=== PATIENT | male | born 1955 | race African-American/Black ===

== ENCOUNTER 2017-09-20 14:23 | Inpatient (IN) | payer SELFPAY ==
[2017-09-20] MEDS: IV NORMAL SALINE 1000ML BAG 1,000 ML IV (14:49)
[2017-09-20] MEDS: ASPIRIN CHEWABLE 81 MG TABLET. PO (15:00)
[2017-09-20] MEDS: ONDANSETRON PF 4 MG/2 ML VIAL. IV (15:00)
[2017-09-20 15:04] LABS: ADD MAN DIFF? NO
[2017-09-20 15:08] LABS: BASO # 0.1 x10^3/uL (0.0-0.2); BASO % 1 % (0-3); EOS # 0.1 x10^3/uL (0.0-0.7); EOS % 1 % (0-3); HEMOGLOBIN 12.8 g/dL (13.0-17.5); LYMPH # 2.5 x10^3/uL (1.0-4.8); LYMPH % 21 % (24-48); MEAN CORPUSCULAR HEMOGLOBIN 24 pg (25-35); MEAN CORPUSCULAR HGB CONC 32 g/dL (31-37); MEAN CORPUSCULAR VOLUME 74 fL (79-100); MONO # 1.1 x10^3/uL (0.0-1.1); MONO % 9 % (0-9); NEUT # 8.1 x10^3uL (1.8-7.7); NEUT % 68 % (31-73); PLATELET COUNT 288 x10^3/uL (140-400); RED BLOOD COUNT 5.42 x10^6/uL (4.30-5.70); RED CELL DISTRIBUTION WIDTH 15.4 % (11.5-14.5); WHITE BLOOD COUNT 11.8 x10^3/uL (4.0-11.0)
[2017-09-20] MEDS: fentaNYL PF VIAL 100 MCG/2 ML VIAL IV (15:11)
[2017-09-20 15:17] LABS: PROTHROMBIN TIME PATIENT 12.8 SEC (11.7-14.0)
[2017-09-20 15:27] LABS: ANION GAP 11 (6-14); BLOOD UREA NITROGEN 14 mg/dL (8-26); BUN/CREATININE RATIO 16 (6-20); CALCIUM 9.2 mg/dL (8.5-10.1); CARBON DIOXIDE 26 mmol/L (21-32); CHLORIDE 105 mmol/L (98-107); CREATININE 0.9 mg/dL (0.7-1.3); GFR 103.8; GLUCOSE 105 mg/dL (70-99); POTASSIUM 4.1 mmol/L (3.5-5.1); SODIUM 142 mmol/L (136-145)
[2017-09-20 15:33] LABS: ALBUMIN 3.7 g/dL (3.4-5.0); ALK PHOS 84 U/L (46-116); ALT (SGPT) 22 U/L (16-63); AST (SGOT) 13 U/L (15-37); TOTAL BILIRUBIN 0.3 mg/dL (0.2-1.0); TOTAL PROTEIN 7.4 g/dL (6.4-8.2)
[2017-09-20 15:35] LABS: TROPONINI < 0.017 ng/mL (0.000-0.055)
[2017-09-20 15:41] LABS: NT-PRO BNP 15 pg/mL (0-124)
[2017-09-20 15:41] LABS: CREATINE KINASE 77 U/L (39-308)
[2017-09-20 15:42] LABS: CKMB MASS < 0.5 ng/mL (0.0-3.6)
[2017-09-20] MEDS ORDERED: ACETAMINOPHEN 325 MG TABLET. PO (16:45)
[2017-09-20] MEDS ORDERED: ONDANSETRON PF 4 MG/2 ML VIAL. IV (16:45)
[2017-09-20] MEDS ORDERED: fentaNYL PF VIAL 100 MCG/2 ML VIAL IV (16:45)
[2017-09-20 19:36] LABS: TROPONINI < 0.017 ng/mL (0.000-0.055)
[2017-09-20 23:33] LABS: TROPONINI < 0.017 ng/mL (0.000-0.055)
[2017-09-21] MEDS: IV NORMAL SALINE 1000ML BAG 1,000 ML IV ×3 (00:03→08:33)
[2017-09-21 05:55] LABS: ADD MAN DIFF? NO
[2017-09-21 06:02] LABS: BASO % 0 % (0-3); EOS # 0.2 x10^3/uL (0.0-0.7); EOS % 1 % (0-3); HEMOGLOBIN 13.2 g/dL (13.0-17.5); LYMPH # 2.9 x10^3/uL (1.0-4.8); LYMPH % 25 % (24-48); MEAN CORPUSCULAR HEMOGLOBIN 23 pg (25-35); MEAN CORPUSCULAR HGB CONC 32 g/dL (31-37); MEAN CORPUSCULAR VOLUME 74 fL (79-100); MONO % 9 % (0-9); NEUT # 7.6 x10^3uL (1.8-7.7); NEUT % 65 % (31-73); PLATELET COUNT 278 x10^3/uL (140-400); RED BLOOD COUNT 5.67 x10^6/uL (4.30-5.70); RED CELL DISTRIBUTION WIDTH 14.9 % (11.5-14.5); WHITE BLOOD COUNT 11.8 x10^3/uL (4.0-11.0)
[2017-09-21 06:16] LABS: ANION GAP 10 (6-14); BLOOD UREA NITROGEN 10 mg/dL (8-26); CALCIUM 9.1 mg/dL (8.5-10.1); CARBON DIOXIDE 28 mmol/L (21-32); CHLORIDE 105 mmol/L (98-107); CREATININE 0.9 mg/dL (0.7-1.3); GFR 103.8; GLUCOSE 96 mg/dL (70-99); SODIUM 143 mmol/L (136-145)
[2017-09-21] MEDS: amLODIPine BESYLATE 5 MG TABLET PO (09:00)
[2017-09-21] MEDS ORDERED: ALBUTEROL SULFATE 2.5 MG/3 ML NEBU. NEB (09:00)
[2017-09-21] MEDS ORDERED: DEXTROSE 50% 25 GM / 50ML DISP.SYRIN. IV (09:00)
[2017-09-21] MEDS ORDERED: ONDANSETRON PF 4 MG/2 ML VIAL. IV (09:00)
[2017-09-21] MEDS ORDERED: MORPHINE SULFATE 4 MG/ML DISP.SYRIN. IV (09:00)
[2017-09-21 09:42] LABS: CHOLESTEROL 144 mg/dL (0-200); HDLC 49 mg/dL (40-60); LDLC 79 mg/dL (0-100); NON-HDL CHOLESTEROL 95 mg/dL (0-129); TRIGLYCERIDES 81 mg/dL (0-150); VLDLC 16 mg/dL (0-40)
[2017-09-21 09:46] LABS: CHOLESTEROL/HDL RATIO 2.9
[2017-09-21] MEDS: ALBUTEROL SULFATE 2.5 MG/3 ML NEBU. NEB ×3 (11:09→19:49)
[2017-09-21] MEDS: INSULIN ASPART 300 UNITS/3 ML INSULN.PEN SQ ×2 (12:00→17:41)
[2017-09-21 12:48] LABS: BILIRUBIN,URINE NEGATIVE (NEG); CLARITY,URINE CLEAR; COLOR,URINE YELLOW; GLUCOSE,URINE NEGATIVE (NEG); NITRITE,URINE NEGATIVE (NEG); PH,URINE 5.5; PROTEIN,URINE NEGATIVE (NEG-TRACE); UROBILINOGEN,URINE 0.2 mg/dL (0.2 mg/dL)
[2017-09-21 13:21] LABS: BACTERIA,URINE 0 /HPF (0-FEW); RBC,URINE OCC /HPF (0-2); WBC,URINE 0 /HPF (0-4)
[2017-09-21 13:22] LABS: HYALINE CASTS, URINE MODERATE /HPF
[2017-09-21 13:25] LABS: BARBITURATES NEG (NEG); BENZODIAZEPINES NEG (NEG); CANNABINOIDS POS (NEG); COCAINE NEG (NEG); METHADONE NEG (NEG); OPIATES NEG (NEG); PHENCYCLIDINE NEG (NEG)
[2017-09-21 13:27] LABS: AMPHETAMINE/METHAMPHETAMINE NEG (NEG); ETHANOL, URINE NEG (NEG)
[2017-09-21] MEDS ORDERED: INFLUENZA VAX SCREEN BY RX. MC (15:00)
[2017-09-21] MEDS ORDERED: PNEUMOCOCCAL VAX SCREEN BY RX. MC (15:00)
[2017-09-21] MEDS: metFORMIN XR 500 MG TAB.ER.24H PO (17:19)
[2017-09-21] MEDS: CLOPIDOGREL BISULFATE 75 MG TABLET PO (17:19)
[2017-09-21] MEDS: PANTOPRAZOLE 40 MG TABLET.DR. PO (17:20)
[2017-09-21] MEDS: ISOSORBIDE MONONITRATE ER 30 MG TAB.ER.24H PO (17:20)
[2017-09-21] MEDS: LISINOPRIL 5 MG TABLET. PO (17:20)
[2017-09-21] MEDS: ASPIRIN ENTERIC COATED 81 MG TABLET.DR. PO (17:21)
[2017-09-21] MEDS: METOPROLOL TART IMMED RELEASE 25 MG TABLET. PO ×2 (17:21→21:35)
[2017-09-21] MEDS: FLU VACC QS2017-18 (36MOS+)/PF 0.5 ML SYRINGE. VAX IM (17:26)
[2017-09-21] MEDS: PNEUMOC CONJ VACC 23-VALENT 0.5 ML VIAL. VAX IM (17:28)
[2017-09-21 17:43] LABS: POC GLUCOSE 154 mg/dL (70-99)
[2017-09-21] MEDS: BUDESONIDE 0.5 MG/2 ML NEBU. NEB (19:49)
[2017-09-21] MEDS: ATORVASTATIN CALCIUM 20 MG TABLET PO (21:35)
[2017-09-21 21:45] LABS: POC GLUCOSE 90 mg/dL (70-99)
[2017-09-22] MEDS: ZOLPIDEM 5 MG TABLET. PO (01:11)
[2017-09-22] MEDS: BUDESONIDE 0.5 MG/2 ML NEBU. NEB (07:42)
[2017-09-22] MEDS: ALBUTEROL SULFATE 2.5 MG/3 ML NEBU. NEB ×2 (07:42→11:29)
[2017-09-22] MEDS: INSULIN ASPART 300 UNITS/3 ML INSULN.PEN SQ ×2 (08:00→12:00)
[2017-09-22] MEDS: LISINOPRIL 5 MG TABLET. PO (09:43)
[2017-09-22] MEDS: ASPIRIN ENTERIC COATED 81 MG TABLET.DR. PO (09:43)
[2017-09-22] MEDS: PANTOPRAZOLE 40 MG TABLET.DR. PO (09:43)
[2017-09-22] MEDS: CLOPIDOGREL BISULFATE 75 MG TABLET PO (09:43)
[2017-09-22] MEDS: METOPROLOL TART IMMED RELEASE 25 MG TABLET. PO (09:45)
[2017-09-22] MEDS: metFORMIN XR 500 MG TAB.ER.24H PO (09:45)
[2017-09-22] MEDS: ISOSORBIDE MONONITRATE ER 30 MG TAB.ER.24H PO (09:45)
[2017-09-22 12:11] LABS: POC GLUCOSE 109 mg/dL (70-99)
[2017-09-22 14:43] LABS: POC GLUCOSE 110 mg/dL (70-99)
== END 2017-09-22 15:00 | disposition home or self-care (01) | DRG 313 ==
LOC: ER 14:23 → ED HOLD 16:06 → 6 SOUTH 18:03
DX: R07.89 Other chest pain (principal); I25.10 Atherosclerotic heart disease of native coronary artery without angina pectoris; F20.9 Schizophrenia, unspecified; E11.9 Type 2 diabetes mellitus without complications; E78.5 Hyperlipidemia, unspecified; F12.90 Cannabis use, unspecified, uncomplicated; F17.210 Nicotine dependence, cigarettes, uncomplicated; F31.9 Bipolar disorder, unspecified; I10 Essential (primary) hypertension; I25.2 Old myocardial infarction; J45.909 Unspecified asthma, uncomplicated; K21.9 Gastro-esophageal reflux disease without esophagitis; Z82.49 Family history of ischemic heart disease and other diseases of the circulatory system; Z87.11 Personal history of peptic ulcer disease; Z90.3 Acquired absence of stomach [part of]; Z90.49 Acquired absence of other specified parts of digestive tract; Z95.5 Presence of coronary angioplasty implant and graft; M19.90 Unspecified osteoarthritis, unspecified site; R71.8 Other abnormality of red blood cells
CPT/HCPCS: 36415; 71045; 78452; 80048; 80053; 80061; 80307; 81001; 82553; 82962; 83735; 83880; 84484; 85025; 85610; 90686; 90732; 93005; 93017; 93306; 94640; 94760; 96361; 96374; 96376; 99285; 99285-25; A9500; J1815; J3010; J7030; J7613; J7626